=== PATIENT | male | born 1945 | race Caucasian/White ===

== ENCOUNTER 2017-01-16 10:31 | Emergency (ER) | payer OTHER ==
[~2017-01-16] VITALS: Ht 193 cm; Wt 146.6 kg
[2017-01-16 11:21] LABS: EOSINOPHIL (%) 1.8 % (0-5); EOSINOPHIL COUNT 0.1 K/uL (0-0.3); HEMATOCRIT 46.1 % (38.0-50.0); IMMATURE GRANULOCYTE (%) 0.4 % (0.0-0.7); LYMPHOCYTE COUNT 0.8 K/uL (1.0-2.8); MCH 31.6 PG (29.0-34.0); MCHC 34.1 G/DL (30.0-36.0); MCV 92.8 FL (86-99); MEAN PLAT.VOLUME 9.7 uM^3 (9.0-12.4); MONOCYTE (%) 12.2 % (3-12); NEUTROPHIL (%) 74.9 % (45-76); PLATELET COUNT 175 K/uL (156-360); RBC DIS.WIDTH-CV 14.6 % (11.8-14.6); RBC DIS.WIDTH-SD 49.7 % (39-53); RED BLOOD COUNT 4.97 M/uL (4.00-5.50)
[2017-01-16 11:25] LABS: ADD MIUA? NO; BILIRUBIN NEGATIVE; BLOOD NEGATIVE; COLOR YELLOW ((YELLOW)); GLUCOSE (STRIP) NEGATIVE; KETONES NEGATIVE; LEUKOCYTES NEGATIVE; NITRITE NEGATIVE; PROTEIN (STRIP) NEGATIVE; SPECIFIC GRAVITY 1.011 (1.000-1.030); UCUL ADDED? NO; UROBILINOGEN 0.2 MG/DL (0.2-1.0)
[2017-01-16 11:32] LABS: CHLORIDE 108 mEq/L (99-109); POTASSIUM 3.8 mEq/L (3.7-5.4); SODIUM 143 mEq/L (136-147)
[2017-01-16 11:34] LABS: GLUCOSE 126 mg/dL (70-99)
[2017-01-16 11:35] LABS: ANION GAP 14 MEQ/L (2-14)
[2017-01-16 11:36] LABS: TOTAL BILIRUBIN 2.6 mg/dL (0.0-1.0)
[2017-01-16 11:37] LABS: ALKALINE PHOSPHATASE 88 IU/L (3-129)
[2017-01-16 11:38] LABS: GFR ESTIMATE (CALCULATED) > 59 mL/min/
[2017-01-16 11:39] LABS: UREA NITROGEN (BUN) 18 mg/dL (9-23)
[2017-01-16 11:42] LABS: TROP-I INTERPRETATION NEGATIVE; TROPONIN-I 0.01 ng/mL (0.0-0.30)
[2017-01-16 12:04] LABS: INFLUENZA A VIRAL ANTIGEN NEGATIVE; INFLUENZA B VIRAL ANTIGEN NEGATIVE
[2017-01-16 17:48] LABS: BASE EXCESS 2.4 mEq/L (-3 to +3); BICARBONATE 26.4 mEq/L (22-26); METHEMOGLOBIN 1.1 % (0-1.5); PCO2 38 mm Hg (35-45); PO2 65 mm Hg (80-100); pH 7.45 (7.35-7.45)
[2017-01-16 17:49] LABS: COMMENTS - BLOOD GASES A+C+; DEVICE RA; SITE LR; TOTAL RESP RATE 18 resp/min
[2017-01-16 19:12] VITALS: BP 136/89
== END 2017-01-16 19:23 | disposition short-term general hospital (02) ==
LOC: EME → EDBD 10:31 → EME 19:23
PROVIDERS: Emergency Medicine
DX: R50.9 Fever, unspecified (principal); R79.89 Other specified abnormal findings of blood chemistry; R41.82 Altered mental status, unspecified; J45.909 Unspecified asthma, uncomplicated; J44.9 Chronic obstructive pulmonary disease, unspecified; E78.5 Hyperlipidemia, unspecified; I10 Essential (primary) hypertension; G20 Parkinson's disease; Z95.0 Presence of cardiac pacemaker
CPT/HCPCS: 36600; 70450; 71020; 80053; 81003; 82803; 83605; 83880; 84484; 85025; 87040; 87077; 87186; 87502; 87801; 93005; 99281; 99284; J2543; J2930; J7030

== ENCOUNTER 2017-07-12 12:27 | Emergency (ER) | payer OTHER ==
[~2017-07-12] VITALS: Ht 193 cm; Wt 120.6 kg
[2017-07-12 14:34] LABS: EOSINOPHIL (%) 1.9 % (0-5); EOSINOPHIL COUNT 0.2 K/uL (0-0.3); HEMATOCRIT 46.6 % (38.0-50.0); IMMATURE GRANULOCYTE (%) 0.4 % (0.0-0.7); INSTRUMENT ABS NEUTROPHIL CT 5.5 K/uL; MCH 31.2 PG (29.0-34.0); MCHC 34.8 G/DL (30.0-36.0); MCV 89.6 FL (86-99); MEAN PLAT.VOLUME 10.1 uM^3 (9.0-12.4); MONOCYTE (%) 13.1 % (3-12); NEUTROPHIL (%) 71.1 % (45-76); NEUTROPHIL COUNT 5.5 K/uL (1.8-6.4); PLATELET COUNT 211 K/uL (156-360); RBC DIS.WIDTH-CV 14.3 % (11.8-14.6); RBC DIS.WIDTH-SD 46.9 % (39-53); WHITE BLOOD COUNT 7.7 K/uL (4.1-10.2)
[2017-07-12 14:42] LABS: CHLORIDE 111 mEq/L (99-109); POTASSIUM 3.2 mEq/L (3.7-5.4); SODIUM 143 mEq/L (136-147)
[2017-07-12 14:44] LABS: GLUCOSE 111 mg/dL (70-99)
[2017-07-12 14:45] LABS: ANION GAP 10 MEQ/L (2-14)
[2017-07-12 14:47] LABS: GFR ESTIMATE (CALCULATED) 58 mL/min/
[2017-07-12 14:48] LABS: UREA NITROGEN (BUN) 14 mg/dL (9-23)
[2017-07-12 15:42] LABS: ADD MIUA? YES; BILIRUBIN NEGATIVE; BLOOD NEGATIVE; COLOR YELLOW ((YELLOW)); GLUCOSE (STRIP) NEGATIVE; KETONES 5; LEUKOCYTES NEGATIVE; NITRITE NEGATIVE; PROTEIN (STRIP) NEGATIVE; SPECIFIC GRAVITY 1.019 (1.000-1.030); UROBILINOGEN 0.2 MG/DL (0.2-1.0)
[2017-07-12 15:48] LABS: BACTERIA NONE SEEN /HPF; EPITHELIAL CELLS RARE /HPF; HYALINE CASTS 0-5 /LPF; MUCUS 1+ /LPF; RED BLOOD CELLS 0-5 /HPF (0-5); UCUL ADDED? NO; WHITE BLOOD CELLS 0-5 /HPF (0-5)
[2017-07-12 20:14] VITALS: BP 141/66
== END 2017-07-12 21:00 | disposition short-term general hospital (02) ==
LOC: EME → EDBD 12:27 → EME 12:27
DX: F05 Delirium due to known physiological condition (principal); G20 Parkinson's disease; K08.109 Complete loss of teeth, unspecified cause, unspecified class; Z98.890 Other specified postprocedural states; F03.90 Unspecified dementia, unspecified severity, without behavioral disturbance, psychotic disturbance, mood disturbance, and anxiety; E78.5 Hyperlipidemia, unspecified; I10 Essential (primary) hypertension; Z86.19 Personal history of other infectious and parasitic diseases
CPT/HCPCS: 70450; 70491; 71010; 80048; 81003; 82140; 83605; 85025; 99281; 99285